=== PATIENT | female | born 1950 ===

== ENCOUNTER 2016-10-11 11:57 | Emergency (ER) | payer MEDICARE, OTHER ==
[2016-10-11 12:54] VITALS: BP 138/83; PULSE 70; RESP 18; TEMP 98.6; O2SAT 100
--- NOTE | 2016-10-11 12:59 | ED PDOC ---
Upper Extremity Pain/Injury Time Seen by Provider: 10/11/16 12:00 Chief Complaint (Nursing): Upper Extremity Problem/Injury Chief Complaint (Provider): Upper Extremity Problem/Injury History Per: Patient History/Exam Limitations: no limitations Onset/Duration Of Symptoms: Days (a few days prior to arrival ) Additional Complaint(s): Chanell Diaz, 66 year old female presents to the ED on 10/11/16 for a right wrist injury after lifting heavy grocery bags a few days prior to arrival. The patient states she was holding the grocery bags with her palms facing up and now feels pain in her right wrist. She applied Bengay to her wrist. Of note, the patient is left handed. Past Medical History Reviewed: Historical Data, Nursing Documentation, Vital Signs Vital Signs: Last Vital Signs Temp 98.6 F 10/11/16 12:53 Pulse 70 10/11/16 12:53 Resp 18 10/11/16 12:53 BP 138/83 10/11/16 12:53 Pulse Ox 100 10/11/16 12:53 - Medical History PMH: Gastritis, HTN, Hypercholesterolemia, Migraine Denies: Chronic Kidney Disease - Family History Family History: States: Unknown Family Hx - Home Medications Home Medications: Ambulatory Orders Medication Instructions Recorded Atorvastatin [Lipitor] 20 mg PO DAILY #30 tab 12/07/14 Enoxaparin [Lovenox] 40 mg SC DAILY #0 syr 12/07/14 GlipiZIDE [Glucotrol] 10 mg PO BIDAC #0 tab 12/07/14 Lisinopril [Prinivil] 2.5 mg PO DAILY #30 tab 12/07/14 MetFORMIN [glucoPHAGE] 850 mg PO BIDWM #0 tab 12/07/14 Ondansetron [Zofran Inj] 4 mg IVP Q6 PRN #0 vial 12/07/14 Pantoprazole [Protonix EC Tab] 40 mg PO DAILY #0 ect 12/07/14 Benzocaine/Menthol [Cepacol Sore 1 each MM Q6 PRN #20 lozenge 09/28/15 Throat Lozenge] Promethazine/Codeine 5 ml PO Q6 PRN #100 ml 09/28/15 [Phenergan/Codeine Oral Syrup] Meclizine [Meclizine*] 25 mg PO Q6 PRN #20 tab 01/08/16 Ibuprofen [Motrin] 600 mg PO Q6 #20 tab 10/11/16 - Allergies Allergies/Adverse Reactions: Allergies Allergy/AdvReac Type Severity Reaction Status Date / Time No Known Allergies Allergy Verified 10/11/16 12:31 Review of Systems ROS Statement: Except As Marked, All Systems Reviewed And Found Negative Musculoskeletal: Positive for: Hand Pain (Right wrist pain ) Physical Exam - Reviewed Nursing Documentation Reviewed: Yes Vital Signs Reviewed: Yes - Physical Exam Appears: Positive for: Non-toxic, No Acute Distress Head Exam: Positive for: ATRAUMATIC, NORMOCEPHALIC Extremity: Positive for: Normal ROM, Other (mild area of ecchymosis to right wrist vular aspect over distal ulna; pain with flexion and extension) Neurologic/Psych: Positive for: Alert, Oriented (x3) - ECG O2 Sat by Pulse Oximetry: 100 (RA) Pulse Ox Interpretation: Normal Medical Decision Making Medical Decision Making: Initial Impression: Right wrist pain Initial Plan: * Ibuprofen 600 mg PO Stat * Wrist, Right 3 Views [RAD] Stat XR: NAd, as read by LASHAE ERICKSON therapy advised. Pt placed into splint by blurb writer Scribe Attestation: Documented by Usha Carmona, acting as a scribe for Berenice Meneses PA-C. Provider Scribe Attestation: All medical record entries made by the Scribe were at my direction and personally dictated by me. I have reviewed the chart and agree that the record accurately reflects my personal performance of the history, physical exam, medical decision making, and the department course for this patient. I have also personally directed, reviewed, and agree with the discharge instructions and disposition. Disposition - Clinical Impression Clinical Impression: Wrist tendonitis - Patient ED Disposition Is Patient to be Admitted: No - Disposition Disposition: Routine/Home Disposition Time: 14:50 Condition: STABLE Prescriptions: Ibuprofen [Motrin] 600 mg PO Q6 #20 tab Instructions: Tendinitis (ED) Forms: [employer] (Kazakh) Print Language: REJI GOULD Present On Arrival: None
--- NOTE | 2016-10-11 14:23 | RAD ---
PROCEDURE: Right Wrist Radiographs. HISTORY: pain s/p carrying heavy bags COMPARISON: None. FINDINGS: BONES: Bone alignment and mineralization are normal. No acute fracture. JOINTS: The proximal and distal carpal rows are maintained. No dislocation. SOFT TISSUES: There is calcification in the triangular fibrocartilage likely related to degeneration. OTHER FINDINGS: None. IMPRESSION: No acute fracture or dislocation.
== END 2016-10-11 14:39 | disposition home or self-care (01) ==
LOC: H.ER 11:57
DX: M65.9 Synovitis and tenosynovitis, unspecified (principal); E78.00 Pure hypercholesterolemia, unspecified; I10 Essential (primary) hypertension; Z79.84 Long term (current) use of oral hypoglycemic drugs

== ENCOUNTER 2017-02-25 14:38 | Emergency (ER) | payer MEDICARE, OTHER ==
--- NOTE | 2017-02-25 15:59 | ED PDOC ---
HPI: General Adult Time Seen by Provider: 02/25/17 15:34 Chief Complaint (Nursing): Flu-like Symptoms Chief Complaint (Provider): Flu-like symptoms History Per: Patient History/Exam Limitations: no limitations Onset/Duration Of Symptoms: Days (x1, yesterday) Current Symptoms Are (Timing): Still Present Additional Complaint(s): Chanell Diaz is a 66 year old female, with a past medical history of hypertension, who presents to the emergency department complaining of chills, sore throat, and body pain onset since yesterday. She also reports a subjective fever yesterday and early this morning. Patient reports taking ibuprofen, and Tylenol with no relief of symptoms. Patient took Tylenol & ibuprofen at 11am today. No further medical complaints. PMD: None provided. Past Medical History Reviewed: Historical Data, Nursing Documentation, Vital Signs Vital Signs: Last Vital Signs Temp 97.6 F 02/25/17 19:02 Pulse 78 02/25/17 19:02 Resp 18 02/25/17 19:02 BP 120/70 02/25/17 19:02 Pulse Ox 98 02/25/17 19:02 - Medical History PMH: Gastritis, HTN, Hypercholesterolemia, Migraine Denies: Chronic Kidney Disease - Family History Family History: States: Unknown Family Hx - Home Medications Home Medications: Ambulatory Orders Medication Instructions Recorded Atorvastatin [Lipitor] 20 mg PO DAILY #30 tab 12/07/14 Enoxaparin [Lovenox] 40 mg SC DAILY #0 syr 12/07/14 GlipiZIDE [Glucotrol] 10 mg PO BIDAC #0 tab 12/07/14 Lisinopril [Prinivil] 2.5 mg PO DAILY #30 tab 12/07/14 MetFORMIN [glucoPHAGE] 850 mg PO BIDWM #0 tab 12/07/14 Ondansetron [Zofran Inj] 4 mg IVP Q6 PRN #0 vial 12/07/14 Pantoprazole [Protonix EC Tab] 40 mg PO DAILY #0 ect 12/07/14 Benzocaine/Menthol [Cepacol Sore 1 each MM Q6 PRN #20 lozenge 09/28/15 Throat Lozenge] Promethazine/Codeine 5 ml PO Q6 PRN #100 ml 09/28/15 [Phenergan/Codeine Oral Syrup] Meclizine [Meclizine*] 25 mg PO Q6 PRN #20 tab 01/08/16 Ibuprofen [Motrin] 600 mg PO Q6 #20 tab 10/11/16 Naproxen [Naprosyn] 500 mg PO BID PRN #14 tablet 02/20/17 Acetaminophen with Codeine 1 tab PO Q6H PRN #10 tab 02/25/17 [Tylenol with Codeine No. 3 300 mg-30 mg] - Allergies Allergies/Adverse Reactions: Allergies Allergy/AdvReac Type Severity Reaction Status Date / Time No Known Allergies Allergy Verified 02/25/17 14:57 Review of Systems ROS Statement: Except As Marked, All Systems Reviewed And Found Negative Constitutional: Positive for: Fever (subjective), Chills, Other (body pain) ENT: Positive for: Throat Pain Physical Exam - Reviewed Nursing Documentation Reviewed: Yes Vital Signs Reviewed: Yes - Physical Exam Appears: Positive for: Non-toxic Head Exam: Positive for: ATRAUMATIC, NORMAL INSPECTION, NORMOCEPHALIC Skin: Positive for: Normal Color, Warm, Dry Eye Exam: Positive for: EOMI, Normal appearance, PERRL ENT: Positive for: Pharyngeal Erythema (uvula midline). Negative for: Tonsillar Exudate, Other (drooling) Neck: Positive for: Normal, Painless ROM, Supple Cardiovascular/Chest: Positive for: Regular Rate, Rhythm. Negative for: Murmur Respiratory: Positive for: Normal Breath Sounds. Negative for: Respiratory Distress Gastrointestinal/Abdominal: Positive for: Normal Exam Extremity: Positive for: Normal ROM. Negative for: Deformity, Swelling Neurologic/Psych: Positive for: Alert, manager program management II-XII, Oriented, Gait (WNL). Negative for: Motor/Sensory Deficits - ECG O2 Sat by Pulse Oximetry: 100 (RA) Pulse Ox Interpretation: Normal Medical Decision Making Medical Decision Making: Initial Impression: Strep flu Initial Plan: --Toradol 30 mg IM --Influenza A B --Rapid Strep Group A Antigen --reevaluation 17:28 Lab results reviewed. Patient is negative for influenza and strep. Throat culture ordered. Patient's condition remains stable. ----- Scribe Attestation: Documented by Yang Hernandez and Zuleima Agarwal, acting as scribes for Beatrice Baker MD. Provider Scribe Attestation: All medical record entries made by the Scribe were at my direction and personally dictated by me. I have reviewed the chart and agree that the record accurately reflects my personal performance of the history, physical exam, medical decision making, and the department course for this patient. I have also personally directed, reviewed, and agree with the discharge instructions and disposition. Disposition - Clinical Impression Clinical Impression: Influenza-like symptoms - Disposition Referrals: [facility] [Outside] Disposition: Routine/Home Disposition Time: 18:35 Condition: IMPROVED Prescriptions: Acetaminophen with Codeine [Tylenol with Codeine No. 3 300 mg-30 mg] 1 tab PO Q6H PRN #10 tab PRN Reason: Pain, Severe (8-10) Instructions: Viral Syndrome (ED) Forms: [employer] (Micronesian) Print Language: MALTESE
[2017-02-25] MEDS ORDERED: Oxycodone/Acetaminophen 5/325 mg Tab PO STA (18:00)
[2017-02-25] MEDS ORDERED: Oxycodone/Acetaminophen 5/325 mg Tab ONE (18:14)
[2017-02-25 19:03] VITALS: BP 120/70; PULSE 78; RESP 18; TEMP 97.6
[2017-02-26 18:45] VITALS: O2SAT 100
== END 2017-02-25 19:03 | disposition home or self-care (01) ==
LOC: H.ER 14:38
DX: B34.9 Viral infection, unspecified (principal); I10 Essential (primary) hypertension; E78.00 Pure hypercholesterolemia, unspecified; Z79.84 Long term (current) use of oral hypoglycemic drugs; E11.9 Type 2 diabetes mellitus without complications
CPT/HCPCS: 82948; 87070; 87430; 87804; 96372; 99281; J1885

== ENCOUNTER 2017-03-19 08:43 | Emergency (ER) | payer MEDICARE, OTHER ==
[2017-03-19 08:54] VITALS: BP 144/86; PULSE 67; RESP 21; TEMP 97.1; O2SAT 96
--- NOTE | 2017-03-19 09:45 | ED PDOC ---
HPI: CCC, URI, Sore Throat Time Seen by Provider: 03/19/17 08:50 Chief Complaint (Nursing): ENT Problem Chief Complaint (Provider): throat pain History Per: Patient History/Exam Limitations: no limitations Onset/Duration Of Symptoms: Days (14) Associated Symptoms: Sore Throat. denies: Fever, Chills, Cough, Sputum, Neck Pain, Sinus Drainage, Myalgias, Nasal Congestion, Nausea, Vomiting, Diarrhea Additional Complaint(s): 66 yo f with history of DM, non compliant, c/o two weeks of sore throat. pt states no fever or vomiting or cough. pt tried home remedies to no avail. pt states was here about 2 weeks ago and did not get antibiotics. pt denies any other complaints Past Medical History Reviewed: Historical Data, Nursing Documentation, Vital Signs Vital Signs: Last Vital Signs Temp 97.1 F L 03/19/17 08:53 Pulse 67 03/19/17 08:53 Resp 21 03/19/17 08:53 BP 144/86 03/19/17 08:53 Pulse Ox 96 03/19/17 12:22 - Medical History PMH: Gastritis, HTN, Hypercholesterolemia, Migraine Denies: Chronic Kidney Disease - Surgical History Other surgeries: fibroids - Family History Family History: States: Unknown Family Hx - Social History Current smoker - smoking cessation education provided: No Alcohol: Occasional Drugs: Denies - Home Medications Home Medications: Ambulatory Orders Medication Instructions Recorded Atorvastatin [Lipitor] 20 mg PO DAILY #30 tab 12/07/14 Enoxaparin [Lovenox] 40 mg SC DAILY #0 syr 12/07/14 GlipiZIDE [Glucotrol] 10 mg PO BIDAC #0 tab 12/07/14 Lisinopril [Prinivil] 2.5 mg PO DAILY #30 tab 12/07/14 MetFORMIN [glucoPHAGE] 850 mg PO BIDWM #0 tab 12/07/14 Ondansetron [Zofran Inj] 4 mg IVP Q6 PRN #0 vial 12/07/14 Pantoprazole [Protonix EC Tab] 40 mg PO DAILY #0 ect 12/07/14 Benzocaine/Menthol [Cepacol Sore 1 each MM Q6 PRN #20 lozenge 09/28/15 Throat Lozenge] Promethazine/Codeine 5 ml PO Q6 PRN #100 ml 09/28/15 [Phenergan/Codeine Oral Syrup] Meclizine [Meclizine*] 25 mg PO Q6 PRN #20 tab 01/08/16 Ibuprofen [Motrin] 600 mg PO Q6 #20 tab 10/11/16 Naproxen [Naprosyn] 500 mg PO BID PRN #14 tablet 02/20/17 Acetaminophen with Codeine 1 tab PO Q6H PRN #10 tab 02/25/17 [Tylenol with Codeine No. 3 300 mg-30 mg] - Allergies Allergies/Adverse Reactions: Allergies Allergy/AdvReac Type Severity Reaction Status Date / Time No Known Allergies Allergy Verified 03/19/17 09:05 Physical Exam - Reviewed Nursing Documentation Reviewed: Yes - Physical Exam Appears: Positive for: Well, Non-toxic, No Acute Distress Head Exam: Positive for: ATRAUMATIC, NORMAL INSPECTION, NORMOCEPHALIC Skin: Positive for: Normal Color, Warm, Dry ENT: Positive for: Normal ENT Inspection, Pharynx Is (mildly erythematous, no exudates) Neck: Positive for: Normal Cardiovascular/Chest: Positive for: Regular Rate, Rhythm Respiratory: Positive for: Normal Breath Sounds Gastrointestinal/Abdominal: Positive for: Normal Exam Extremity: Positive for: Normal ROM Neurologic/Psych: Positive for: Alert, Oriented - ECG O2 Sat by Pulse Oximetry: 96 Medical Decision Making Medical Decision Makin yo f with sore throat. rule out strep. 1220 -Strep results came back negative. pt sleeping throughout ER stay Disposition - Clinical Impression Clinical Impression: Sore throat - Patient ED Disposition Is Patient to be Admitted: No Counseled Patient/Family Regarding: Studies Performed, Diagnosis, Need For Followup - Disposition Referrals: [facility] [Outside] [facility] [Outside] Bertrand Holliday MD [Staff Provider] - Disposition: Routine/Home Disposition Time: 10:00 Condition: IMPROVED Additional Instructions: follow up with your primary doctor in 1-2 days return to the ED with any worsening or concerning symptoms. Instructions: Tonsillitis (ED) Forms: [employer] (Tristanian) Print Language: VIETNAMESE
== END 2017-03-19 12:43 | disposition home or self-care (01) ==
LOC: H.ER 08:43
DX: J02.9 Acute pharyngitis, unspecified (principal); E78.00 Pure hypercholesterolemia, unspecified; I10 Essential (primary) hypertension; Z79.84 Long term (current) use of oral hypoglycemic drugs

== ENCOUNTER 2017-08-30 12:46 | Emergency (ER) | payer MEDICARE, OTHER ==
[2017-08-30] MEDS ORDERED: Sodium Chloride 0.9% 1,000 ML IV STA (13:19)
[2017-08-30 13:53] LABS: BASO % 0.6 % (0.0-2.0); EOS # 0.1 K/uL (0.0-0.7); EOS % 0.9 % (0.0-4.0); HEMOGLOBIN 13.6 g/dL (12.0-16.0); LYMPH # 2.7 K/uL (1.0-4.3); LYMPH % 35.9 % (20.0-40.0); MEAN CELL VOLUME 86.6 fl (81.0-99.0); MEAN CORPUSCULAR HEMOGLOBIN 30.4 pg (27.0-31.0); MEAN CORPUSCULAR HGB CONC 35.1 g/dL (33.0-37.0); MEAN PLATELET VOLUME 8.9 fl (7.2-11.7); MONO # 0.5 K/uL (0.0-0.8); MONO % 6.8 % (0.0-10.0); NEUT # 4.2 K/uL (1.8-7.0); NEUT % 55.8 % (50.0-75.0); NRBC % 0.1 % (0.0-0.0); RBC 4.47 Mil/uL (3.80-5.20); RED CELL DISTRIBUTION WIDTH 12.8 % (11.5-14.5); WHITE BLOOD COUNT 7.5 K/uL (4.8-10.8)
[2017-08-30 14:03] LABS: BLOOD UREA NITROGEN 17 mg/dl (7-17); CALCIUM 9.1 mg/dL (8.4-10.2); GFR AFRICAN-AMERICAN > 60; GFR NON-AFRICAN AMERICAN > 60
--- NOTE | 2017-08-30 14:59 | ED PDOC ---
Hyperglycemia/Hypoglycemia Time Seen by Provider: 08/30/17 13:00 Chief Complaint (Nursing): High Blood Sugar Chief Complaint (Provider): Elevated Blood Sugar History Per: Patient History/Exam Limitations: no limitations Onset/Duration Of Symptoms: Days (1 week) : The patient does not have any of the infectious symptoms listed except for those marked. Additional Complaint(s): 67 year old female with a history of hypertension, diabetes and migraines presents to the ED complaining of elevated blood sugar onset for one week. Reports of headache, feeling tired and states her blood sugar goes up and down . Patient does not take insulin but takes pills. Also feels thirsty and she is drinking plenty of fluid. Denies chest pain, shortness of breath, vomiting, diarrhea, or abdominal pain. PMD: [facility] Past Medical History Reviewed: Historical Data, Nursing Documentation, Vital Signs Vital Signs: Last Vital Signs Temp 98.1 F 08/30/17 12:53 Pulse Resp 16 08/30/17 12:53 BP 150/74 08/30/17 12:53 Pulse Ox 99 08/30/17 12:53 - Medical History PMH: Diabetes, Gastritis, HTN, Hypercholesterolemia, Migraine Denies: Chronic Kidney Disease - Surgical History Surgical History: - Family History Family History: States: Unknown Family Hx - Home Medications Home Medications: Ambulatory Orders Medication Instructions Recorded Atorvastatin [Lipitor] 20 mg PO DAILY #30 tab 12/07/14 Enoxaparin [Lovenox] 40 mg SC DAILY #0 syr 12/07/14 Lisinopril [Prinivil] 2.5 mg PO DAILY #30 tab 12/07/14 MetFORMIN [glucoPHAGE] 850 mg PO BIDWM #0 tab 12/07/14 Ondansetron [Zofran Inj] 4 mg IVP Q6 PRN #0 vial 12/07/14 Pantoprazole [Protonix EC Tab] 40 mg PO DAILY #0 ect 12/07/14 Benzocaine/Menthol [Cepacol Sore 1 each MM Q6 PRN #20 lozenge 09/28/15 Throat Lozenge] Promethazine/Codeine 5 ml PO Q6 PRN #100 ml 09/28/15 [Phenergan/Codeine Oral Syrup] Meclizine [Meclizine*] 25 mg PO Q6 PRN #20 tab 01/08/16 Ibuprofen [Motrin] 600 mg PO Q6 #20 tab 10/11/16 Naproxen [Naprosyn] 500 mg PO BID PRN #14 tablet 02/20/17 Acetaminophen with Codeine 1 tab PO Q6H PRN #10 tab 02/25/17 [Tylenol with Codeine No. 3 300 mg-30 mg] GlipiZIDE [Glucotrol] 10 mg PO BIDAC #60 tab 08/30/17 metFORMIN [glucOPHAGE] 500 mg PO BID #60 tab 08/30/17 - Allergies Allergies/Adverse Reactions: Allergies Allergy/AdvReac Type Severity Reaction Status Date / Time No Known Allergies Allergy Verified 03/19/17 09:05 Review of Systems ROS Statement: Except As Marked, All Systems Reviewed And Found Negative Constitutional: Positive for: Other (tired) Cardiovascular: Negative for: Chest Pain Respiratory: Negative for: Shortness of Breath Gastrointestinal: Negative for: Vomiting, Abdominal Pain, Diarrhea Physical Exam - Reviewed Nursing Documentation Reviewed: Yes Vital Signs Reviewed: Yes - Physical Exam Appears: Positive for: Well, Non-toxic, No Acute Distress Head Exam: Positive for: ATRAUMATIC, NORMAL INSPECTION, NORMOCEPHALIC Skin: Positive for: Normal Color, Warm, Dry Eye Exam: Positive for: EOMI, Normal appearance, PERRL ENT: Positive for: Normal ENT Inspection Neck: Positive for: Normal, Painless ROM, Supple. Negative for: Decreased ROM Cardiovascular/Chest: Positive for: Regular Rate, Rhythm. Negative for: Murmur Respiratory: Positive for: Normal Breath Sounds. Negative for: Decreased Breath Sounds, Accessory Muscle Use, Respiratory Distress Gastrointestinal/Abdominal: Positive for: Normal Exam, Bowel Sounds, Soft. Negative for: Tenderness, Guarding, Rebound Back: Positive for: Normal Inspection. Negative for: L CVA Tenderness, R CVA Tenderness Extremity: Positive for: Normal ROM. Negative for: Tenderness, Pedal Edema, Deformity Neurologic/Psych: Positive for: Alert, Oriented (x3). Negative for: Motor/ Sensory Deficits - Laboratory Results Result Diagrams: 08/30/17 13:47 08/30/17 13:47 - ECG O2 Sat by Pulse Oximetry: 99 (RA) Pulse Ox Interpretation: Normal - Progress Re-evaluation Time: 15:33 Condition: Re-examined, Improved Medical Decision Making Medical Decision Making: Time: 1319 Initial Impression: Hyperglycemia, uncontrolled diabetes, and headache Differential Diagnosis includes but is not limited to: migraine r/o DKA Initial Plan: --BMP --ED Urine Dipstick --CBC W/ Differential --Normal Saline 999mls/hr --Reglan 10mg --IV Insertion --Reevaluation Scribe Attestation: Documented by Lianna Hays, acting as a scribe for Dennise Cornejo MD Provider Scribe Attestation: All medical record entries made by the Scribe were at my direction and personally dictated by me. I have reviewed the chart and agree that the record accurately reflects my personal performance of the history, physical exam, medical decision making, and the department course for this patient. I have also personally directed, reviewed, and agree with the discharge instructions and disposition. Disposition - Clinical Impression Clinical Impression: Hyperglycemia, Migraine - Patient ED Disposition Is Patient to be Admitted: No Doctor Will See Patient In The: Office Counseled Patient/Family Regarding: Studies Performed, Diagnosis, Need For Followup - Disposition Referrals: [facility] [Outside] Disposition: Routine/Home Disposition Time: 15:33 Condition: GOOD Additional Instructions: Take your medications as directed. Follow up with your PCP in 2-3 days. Instructions: Hyperglycemia, Adult, Migraine Headaches in Adults
[2017-08-30 18:19] VITALS: BP 128/78; PULSE 78; RESP 18; TEMP 98; O2SAT 100
== END 2017-08-30 16:30 | disposition home or self-care (01) ==
LOC: H.ER 12:46
DX: E11.65 Type 2 diabetes mellitus with hyperglycemia (principal); G43.909 Migraine, unspecified, not intractable, without status migrainosus; E78.00 Pure hypercholesterolemia, unspecified; I10 Essential (primary) hypertension; Z79.84 Long term (current) use of oral hypoglycemic drugs
CPT/HCPCS: 80048; 82948; 85025; 96374; 99283; J2765; J7040

== ENCOUNTER 2018-02-20 08:40 | Emergency (ER) | payer MEDICARE, OTHER ==
[2018-02-20 08:54] VITALS: TEMP 98
--- NOTE | 2018-02-20 09:41 | ED PDOC ---
Upper Extremity Pain/Injury Time Seen by Provider: 02/20/18 09:07 Chief Complaint (Nursing): Upper Extremity Problem/Injury Chief Complaint (Provider): Right shoulder pain History Per: Patient History/Exam Limitations: no limitations Onset/Duration Of Symptoms: Days (x3) Current Symptoms Are (Timing): Still Present Exacerbating Factor(s): Movement Additional Complaint(s): 67 y/o female presents to the ED complaining of right shoulder and right arm pain since 3 days ago. States symptoms began after she went grocery shopping and was carrying many bags. Reports she took Tylenol without relief. Denies any fall or blunt trauma. Otherwise patient denies any numbness, tingling, chest pain, SOB, cough/URI symptoms, fever, or extremity weakness. PMD: the clinic Past Medical History Reviewed: Historical Data, Nursing Documentation, Vital Signs Vital Signs: Last Vital Signs Temp 98 F 02/20/18 08:52 Pulse 67 02/20/18 08:52 Resp 16 02/20/18 08:52 BP 157/76 H 02/20/18 08:52 Pulse Ox 99 02/20/18 08:52 - Medical History PMH: Diabetes, Gastritis, HTN, Hypercholesterolemia, Migraine Denies: Chronic Kidney Disease - Surgical History Surgical History: - Family History Family History: States: Unknown Family Hx - Home Medications Home Medications: Ambulatory Orders Medication Instructions Recorded Atorvastatin [Lipitor] 20 mg PO DAILY #30 tab 12/07/14 Enoxaparin [Lovenox] 40 mg SC DAILY #0 syr 12/07/14 Lisinopril [Prinivil] 2.5 mg PO DAILY #30 tab 12/07/14 MetFORMIN [glucoPHAGE] 850 mg PO BIDWM #0 tab 12/07/14 Ondansetron [Zofran Inj] 4 mg IVP Q6 PRN #0 vial 12/07/14 Pantoprazole [Protonix EC Tab] 40 mg PO DAILY #0 ect 12/07/14 Benzocaine/Menthol [Cepacol Sore 1 each MM Q6 PRN #20 lozenge 09/28/15 Throat Lozenge] Promethazine/Codeine 5 ml PO Q6 PRN #100 ml 09/28/15 [Phenergan/Codeine Oral Syrup] Meclizine [Meclizine*] 25 mg PO Q6 PRN #20 tab 01/08/16 Ibuprofen [Motrin] 600 mg PO Q6 #20 tab 10/11/16 Naproxen [Naprosyn] 500 mg PO BID PRN #14 tablet 02/20/17 Acetaminophen with Codeine 1 tab PO Q6H PRN #10 tab 02/25/17 [Tylenol with Codeine No. 3 300 mg-30 mg] GlipiZIDE [Glucotrol] 10 mg PO BIDAC #60 tab 08/30/17 metFORMIN [glucOPHAGE] 500 mg PO BID #60 tab 08/30/17 Naproxen [Naprosyn] 500 mg PO BID PRN #20 tablet 02/20/18 - Allergies Allergies/Adverse Reactions: Allergies Allergy/AdvReac Type Severity Reaction Status Date / Time No Known Allergies Allergy Verified 03/19/17 09:05 Review of Systems ROS Statement: Except As Marked, All Systems Reviewed And Found Negative Constitutional: Negative for: Fever, Chills ENT: Negative for: Nose Discharge, Nose Congestion Cardiovascular: Negative for: Chest Pain Respiratory: Negative for: Cough, Shortness of Breath Musculoskeletal: Positive for: Shoulder Pain (right shoulder) Skin: Negative for: Lesions, Bruising Neurological: Negative for: Weakness, Numbness, Incoordination Physical Exam - Reviewed Nursing Documentation Reviewed: Yes Vital Signs Reviewed: Yes - Physical Exam Appears: Positive for: Well, Non-toxic, No Acute Distress Head Exam: Positive for: ATRAUMATIC, NORMAL INSPECTION, NORMOCEPHALIC Skin: Positive for: Normal Color, Warm Respiratory: Negative for: Accessory Muscle Use, Respiratory Distress Pulses-Radial (L): 2+ Pulses-Radial (R): 2+ Extremity: Positive for: Capillary Refill (< 2 sec), Other (Patient holding/guarding the right arm). Negative for: Normal ROM (Limited ROM secondary to pain of right shoulder, limited abduction of the arm and limited internal/external rotation), Swelling Neurologic/Psych: Positive for: Alert, Oriented (x3). Negative for: Motor/Sensory Deficits - ECG O2 Sat by Pulse Oximetry: 99 (RA) Pulse Ox Interpretation: Normal - Radiology X-Ray: Viewed By Mo X-Ray Interpretation: Other (calcifications) Medical Decision Making Medical Decision Making: Time: 9:23 Initial Impression: Right shoulder pain, will consider Bursitis, Tendonitis, Calcific tendonitis Initial Plan: --Right shouder x-ray --60 mg Toradol IM ----- Scribe Attestation: Documented by Maday Gil, acting as a scribe for Dr. Cayla Roberson MD. Provider Scribe Attestation: All medical record entries made by the Scribe were at my direction and personally dictated by me. I have reviewed the chart and agree that the record accurately reflects my personal performance of the history, physical exam, medical decision making, and the department course for this patient. I have also personally directed, reviewed, and agree with the discharge instructions and disposition. Disposition - Clinical Impression Clinical Impression: Calcific shoulder tendinitis - Patient ED Disposition Is Patient to be Admitted: No Doctor Will See Patient In The: Office Counseled Patient/Family Regarding: Diagnosis, Need For Followup, Rx Given - Disposition Referrals: [facility] [Outside] [facility] [Outside] Disposition: Routine/Home Disposition Time: 10:40 Condition: IMPROVED Prescriptions: Naproxen [Naprosyn] 500 mg PO BID PRN #20 tablet PRN Reason: Pain, Moderate (4-7) Instructions: Calcific Tendonitis of the Shoulder (DC) Forms: [employer] (Turkmen) Print Language: TURKMEN - POA Present On Arrival: None
[2018-02-20 11:21] VITALS: BP 139/89; PULSE 62; RESP 18; O2SAT 100
--- NOTE | 2018-02-20 11:56 | RAD ---
Date of service: 02/20/2018 PROCEDURE: Radiographs of the Right Shoulder HISTORY: pain for 2 days after carrying groceries. COMPARISON: No prior. FINDINGS: BONES: No fracture. Globular calcifications are seen adjacent to the greater tuberosity consistent with chronic calcific tendinitis. JOINTS: Normal. Glenohumeral and acromioclavicular joints preserved. No osteoarthritis. SOFT TISSUES: Normal. OTHER FINDINGS: None. IMPRESSION: Chronic calcific tendinitis.
== END 2018-02-20 11:13 | disposition home or self-care (01) ==
LOC: H.ER 08:40
DX: M75.31 Calcific tendinitis of right shoulder (principal); E11.9 Type 2 diabetes mellitus without complications; E78.00 Pure hypercholesterolemia, unspecified; I10 Essential (primary) hypertension; Z79.84 Long term (current) use of oral hypoglycemic drugs; Z79.899 Other long term (current) drug therapy
CPT/HCPCS: 73030; 96372; 99284; J1885

== ENCOUNTER 2018-02-22 13:10 | Emergency (ER) | payer MEDICARE, OTHER ==
[2018-02-22 13:16] VITALS: TEMP 98
--- NOTE | 2018-02-22 14:58 | ED PDOC ---
Upper Extremity Pain/Injury Time Seen by Provider: 02/22/18 13:22 Chief Complaint (Nursing): Upper Extremity Problem/Injury Additional Complaint(s): 67 y/o F with recent presentation to ED on 02/20 with Right shoulder pain and had CT that showed capsular tendinitis who now presents stating that she has persistent pain. Patient states that she was unable to get the Naproxen and that her Right shoulder pain worsened after attempting to open a stiff window yesterday. denies numbness or tingling, weakness. States that she cannot even raise her Right arm due to exquisite pain. Pain shoots from shoulder down to elbow. Past Medical History Reviewed: Historical Data, Nursing Documentation, Vital Signs Vital Signs: Last Vital Signs Temp 98 F 02/22/18 13:15 Pulse 69 02/22/18 13:15 Resp 20 02/22/18 13:15 BP 182/82 H 02/22/18 13:15 Pulse Ox 98 02/22/18 13:15 - Medical History PMH: Diabetes, Gastritis, HTN, Hypercholesterolemia, Migraine Denies: Chronic Kidney Disease - Surgical History Surgical History: - Family History Family History: States: Unknown Family Hx - Social History Current smoker - smoking cessation education provided: No Ex-Smoker (has not smoked in the last 12 months): No Alcohol: None Drugs: Denies - Home Medications Home Medications: Ambulatory Orders Medication Instructions Recorded Atorvastatin [Lipitor] 20 mg PO DAILY #30 tab 12/07/14 Enoxaparin [Lovenox] 40 mg SC DAILY #0 syr 12/07/14 Lisinopril [Prinivil] 2.5 mg PO DAILY #30 tab 12/07/14 MetFORMIN [glucoPHAGE] 850 mg PO BIDWM #0 tab 12/07/14 Ondansetron [Zofran Inj] 4 mg IVP Q6 PRN #0 vial 12/07/14 Pantoprazole [Protonix EC Tab] 40 mg PO DAILY #0 ect 12/07/14 Benzocaine/Menthol [Cepacol Sore 1 each MM Q6 PRN #20 lozenge 09/28/15 Throat Lozenge] Promethazine/Codeine 5 ml PO Q6 PRN #100 ml 09/28/15 [Phenergan/Codeine Oral Syrup] Meclizine [Meclizine*] 25 mg PO Q6 PRN #20 tab 01/08/16 Ibuprofen [Motrin] 600 mg PO Q6 #20 tab 10/11/16 Naproxen [Naprosyn] 500 mg PO BID PRN #14 tablet 02/20/17 Acetaminophen with Codeine 1 tab PO Q6H PRN #10 tab 02/25/17 [Tylenol with Codeine No. 3 300 mg-30 mg] GlipiZIDE [Glucotrol] 10 mg PO BIDAC #60 tab 08/30/17 metFORMIN [glucOPHAGE] 500 mg PO BID #60 tab 08/30/17 Naproxen [Naprosyn] 500 mg PO BID PRN #20 tablet 02/20/18 Naproxen 500 mg PO BID PRN 7 Days tab 02/22/18 - Allergies Allergies/Adverse Reactions: Allergies Allergy/AdvReac Type Severity Reaction Status Date / Time No Known Allergies Allergy Verified 02/22/18 13:12 Review of Systems ROS Statement: Except As Marked, All Systems Reviewed And Found Negative Cardiovascular: Negative for: Chest Pain Respiratory: Negative for: Cough, Shortness of Breath Musculoskeletal: Positive for: Neck Pain, Shoulder Pain, Arm Pain Skin: Negative for: Rash Physical Exam - Reviewed Nursing Documentation Reviewed: Yes Vital Signs Reviewed: Yes - Physical Exam Appears: Positive for: Uncomfortable Head Exam: Positive for: ATRAUMATIC Skin: Positive for: Normal Color Eye Exam: Positive for: Normal appearance Neck: Positive for: Painless ROM Cardiovascular/Chest: Positive for: Regular Rate, Rhythm Respiratory: Positive for: Normal Breath Sounds Back: Positive for: Normal Inspection Extremity: Positive for: Other (decreased flexion and abduction of Right arm both passively and actively. Sensation to light touch intact B/L. Good ROM at wrist and ) Neurologic/Psych: Positive for: Alert, Oriented - ECG O2 Sat by Pulse Oximetry: 98 Medical Decision Making Medical Decision Making: Toradol 30mg IM x 1. time: 14:57 -upon revaluation, pain mildly improved. Ok for d/c home. Disposition - Clinical Impression Clinical Impression: Calcific tendinitis of right shoulder - Patient ED Disposition Is Patient to be Admitted: No Counseled Patient/Family Regarding: Studies Performed, Diagnosis, Need For Followup - Disposition Referrals: [facility] [place] [Outside] Disposition: Routine/Home Disposition Time: 14:57 Condition: STABLE Additional Instructions: Take Naproxen every 12hrs for the next 3 days then use as needed. Avoid strenuous exercise using your right arm until inflammation decreases. F/u with orthopdist for further care. Avoid taking Ibuprofen at the same time as Naproxen and throw medications. Prescriptions: Naproxen 500 mg PO BID PRN 7 Days tab PRN Reason: Pain, Moderate (4-7) Instructions: Calcific Tendonitis of the Shoulder (DC) Forms: [employer] ([place]vian) Print Language: [place]ET[place]ESE
[2018-02-22 15:01] VITALS: BP 130/78; PULSE 72; RESP 18
[2018-02-23 01:25] VITALS: O2SAT 98
== END 2018-02-22 15:06 | disposition home or self-care (01) ==
LOC: H.ER 13:10
DX: M75.31 Calcific tendinitis of right shoulder (principal); E11.9 Type 2 diabetes mellitus without complications; Z79.84 Long term (current) use of oral hypoglycemic drugs
CPT/HCPCS: 96372; 99283; J1885